=== PATIENT | female | born 1965 | race Caucasian/White ===

== ENCOUNTER 2020-07-09 11:06 | Day surgery (SDC) | payer BC ==
[2020-07-05 13:04] LABS: BASOPHILS # (AUTO) 0.1 X10'3 (0-0.2); BASOPHILS % (AUTO) 0.8 % (0-1); EOSINOPHILS # (AUTO) 0.2 X10'3 (0-0.9); EOSINOPHILS % (AUTO) 2.2 % (0-6); HEMATOCRIT 41.8 % (35.0-45.0); LYMPHOCYTES # (AUTO) 2.1 X10'3 (1.1-4.8); LYMPHOCYTES % (AUTO) 23.7 % (21-51); MEAN CORPUSCULAR HEMOGLOBIN 27.4 PG (27.0-31.0); MEAN CORPUSCULAR HGB CONC 33.4 g/dL (33.0-36.5); MEAN CORPUSCULAR VOLUME 82.1 FL (78-98); MEAN PLATELET VOLUME 9.8 FL (7.4-10.4); MONOCYTES # (AUTO) 0.4 X10'3 (0-0.9); NEUTROPHILS % (AUTO) 68.3 % (42-75); PLATELET COUNT 216 X10'3 (140-440); RED CELL DISTRIBUTION WIDTH 14.4 % (11.5-14.5); WHITE BLOOD COUNT 8.8 X10'3 (4.5-11.0)
[2020-07-05 13:16] LABS: ALBUMIN 3.8 G/DL (3.4-5.0); ANION GAP 10 (8-16); BLOOD UREA NITROGEN 13 MG/DL (7-18); BUN/CREATININE RATIO 15.1 (6.6-38.0); CALCIUM 9.5 MG/DL (8.5-10.1); CHLORIDE 102 MMOL/L (99-107); CREATININE 0.86 MG/DL (0.40-0.90); GLUCOSE 106 MG/DL (70-104); PARTIAL THROMBOPLASTIN TIME 28 SECONDS (22-32); POTASSIUM 3.9 MMOL/L (3.5-5.1); SODIUM 140 MMOL/L (135-145); TOTAL CARBON DIOXIDE 28.5 MMOL/L (24-32); eGFR 68 ML/MIN
[~2020-07-09] VITALS: Ht 170.2 cm; Wt 123.4 kg
[2020-07-09] VITALS (8 sets, daily range): BP systolic 91–145; BP diastolic 45–73
[2020-07-09] MEDS ORDERED: diphenhydrAMINE 25mg capsule PO PRN (11:30)
[2020-07-09] MEDS ORDERED: LORazepam 0.5 MG tablet PO PRN (11:30)
[2020-07-09] MEDS ORDERED: LIDOcaine/PRILOcaine 5gm cream TP ONE (11:30)
[2020-07-09] MEDS ORDERED: normal saline 1,000 ML IV SCH (11:30)
[2020-07-09] MEDS ORDERED: HYDR25TA5 PO (11:36)
[2020-07-09] MEDS ORDERED: NITR0.4T48 SL (11:36)
[2020-07-09] MEDS ORDERED: ASPI-1053 PO (11:36)
[2020-07-09] MEDS ORDERED: NAPR250T4 PO (11:36)
[2020-07-09] MEDS ORDERED: CITA20TA28 PO (11:36)
[2020-07-09] MEDS ORDERED: VITAMIN D3 PO (11:36)
[2020-07-09] MEDS ORDERED: MULT-1180 (11:36)
[2020-07-09] MEDS ORDERED: CLON0.1T2 PEG (11:36)
[2020-07-09] MEDS ORDERED: ATOR10TA87 PO (11:36)
[2020-07-09] MEDS ORDERED: LISI30TA4 PO (11:36)
[2020-07-09] MEDS ORDERED: ALLO100T PO (11:36)
[2020-07-09] MEDS ORDERED: nitroGLYCERIN-Tridil 50MG/D5W 250 ML IV ONE (11:48)
[2020-07-09] MEDS ORDERED: LIDOcaine 1% (10mg/ml)w/preservative injection 20ml MDV ONE (11:48)
[2020-07-09] MEDS ORDERED: midazolam 2 mg/2 ml injection ONE ×2 (11:48→12:27)
[2020-07-09] MEDS ORDERED: fentaNYL/PF 50MCG/1 ML 2ML syringe ONE (11:48)
[2020-07-09] MEDS ORDERED: verapamil 2.5 mg/ml inj IV ONE (11:48)
[2020-07-09] MEDS ORDERED: heparin 1,000unit/ml 10ml vial 10 ML ONE (11:49)
[2020-07-09] MEDS ORDERED: iohexol 350MG/ML 100ml bottle IV ONE (11:49)
--- NOTE | 2020-07-09 11:57 | NUR ---
Pt left floor for procedure.
[2020-07-09] MEDS ORDERED: ondansetron/PF 4mg/2ml inj IV PRN (13:10)
[2020-07-09] MEDS ORDERED: proCHLORperazine 10 MG/2 ml inj IV PRN (13:10)
[2020-07-09] MEDS ORDERED: OXAZEpam 15mg capsule PO PRN (13:10)
== END 2020-07-09 15:30 | disposition home or self-care (01) ==
LOC: SSTAY O 11:06
PROVIDERS: ATTEND Internal Medicine Interventional Cardiology
DX: R07.9 Chest pain, unspecified (principal); I25.10 Atherosclerotic heart disease of native coronary artery without angina pectoris; J44.9 Chronic obstructive pulmonary disease, unspecified; G47.33 Obstructive sleep apnea (adult) (pediatric); I10 Essential (primary) hypertension; Z79.82 Long term (current) use of aspirin; F32.9 Major depressive disorder, single episode, unspecified; Z79.899 Other long term (current) drug therapy; Z88.1 Allergy status to other antibiotic agents; Z88.8 Allergy status to other drugs, medicaments and biological substances; Z98.890 Other specified postprocedural states
CPT/HCPCS: 36415; 80048; 85025; 85610; 85730; 93005; 93458; 99152; 99153; C1769; J1644; J2001; J2250; J3010; Q9967; A4620; A5120; J3490

== ENCOUNTER 2021-03-15 18:43 | Emergency (ER) | payer BC, MEDICAID ==
[~2021-03-15] VITALS: Ht 170.2 cm; Wt 125.0 kg
[~2021-03-15 18:43] MED LIST: ALLO100T PO; ASPI-1053 PO; ATOR10TA87 PO; CITA20TA28 PO; CLON0.1T2 PEG; HYDR25TA5 PO; LISI30TA4 PO; MULT-1180; NAPR-1170 PO; NITR0.4T48 SL; VITAMIN D3 PO
[2021-03-15 19:20] VITALS: BP 134/52
[2021-03-15] MEDS ORDERED: acetaminophen 325mg tablet PO ONE (19:25)
[2021-03-15] MEDS ORDERED: ketorolac tromethamine 15mg/ml inj. IV ONE (19:25)
[2021-03-15] MEDS ORDERED: VALA100031 PO (19:37)
[2021-03-15] MEDS ORDERED: ACYC-129 PO (20:25)
[2021-03-15] MEDS ORDERED: HYDROcodone/acetaminophen 5mg/325mg tablet PO ONE (20:30)
== END 2021-03-15 21:00 | disposition home or self-care (01) ==
LOC: ER 18:43
DX: J44.9 Chronic obstructive pulmonary disease, unspecified (principal); Z88.0 Allergy status to penicillin; Z88.1 Allergy status to other antibiotic agents; Z79.899 Other long term (current) drug therapy; Z20.822 Contact with and (suspected) exposure to COVID-19
CPT/HCPCS: 71045; 87635; 96372; 99284; C9803; J1885

== ENCOUNTER 2024-11-06 07:23 | Emergency (ER) | payer MEDICARE, OTHER ==
[~2024-11-06] VITALS: Ht 170.2 cm; Wt 94.6 kg
[~2024-11-06 07:23] MED LIST changes: +CITA-178 PO; -CITA20TA28 PO
[2024-11-06 07:26] VITALS: BP 190/103; PULSE 102; O2SAT 98
--- NOTE | 2024-11-06 09:37 | Physician Documentation ---
History of Present Illness ~ Chief Complaint: Back Pain Stated Complaint: leg pain Time Seen by MD: 08:38 HPI 59 f sHe has presents with a complaint of right-sided sciatica exacerbation. Denies any acute injury. States she has a history of back problems. States that the most of her pain starts in her right buttocks and radiates down her right leg. Denies any numbness tingling incontinence fever Medication Reconciliation Allergies: Coded Allergies: Penicillins (Verified Allergy, Unknown, 11/06/24) azithromycin (Verified Allergy, Unknown, 11/06/24) cephalexin (Verified Allergy, Unknown, 11/06/24) Scheduled Allopurinol* (Allopurinol*), 1 TAB PO DAILY, (Reported) Aspirin (Delio Chewable), 81 MG PO DAILY, (Reported) Atorvastatin Calcium* (Lipitor*), 1 TABLET PO DAILY, (Reported) Citalopram Hydrobromide* (Celexa*), 1 TAB PO DAILY, (Reported) Clonidine HCl (Clonidine HCl), 0.5 TAB PEG TID, (Reported) Hydrochlorothiazide (Hydrochlorothiazide), 1 TAB PO DAILY, (Reported) Lisinopril (Lisinopril), 1 TAB PO DAILY, (Reported) Nitroglycerin (Nitroglycerin), 1 TAB SL UD, (Reported) [Vitamin D3], 125 MCG PO DAILY, (Reported) Scheduled PRN Naproxen (Naproxen), 1 TAB PO PRN PRN for pain, (Reported) Miscellaneous Medications Multivitamin/Iron/Folic Acid (Centrum Adults Tablet), (Reported) Past Medical History Past Medical History: COPD Review of Systems All Other Systems at this time: Reviewed and Negative ROS As stated above in the HPI, otherwise all systems are reviewed and negative. Physical Exam Physical Exam Vital Signs: Temperature: 97.9, Heart Rate: 102, Respiratory Rate: 18, BP: 190/103, Pulse Oximetry: 98, Weight: 94.600 Physical Exam General: Alert, no apparent distress. s. Extremities: Normal range of motion, no deformity. Patient's the right buttocks via palpation Neurologic: Oriented x4. normal Reflexes Psychiatric: Normal mood and affect. Skin: Normal color, warm and dry. No edema, no ecchymosis. Progress Results/Orders Results/Orders Completed Orders - PERRY CERDA NP Ketorolac Trometh 15mg/Ml Vial (Toradol (11/06/24 08:45) Morphine 4mg/Ml Inj. (Morphine Inj.) (11/06/24 09:35) Vital Signs 11/06/24 07:26 Temp 97.9 Pulse 102 Resp 18 B/P (MAP) 190/103 Pulse Ox 98 Medical Decision Making Findings Patient does not present with any red flag signs her indications that would require further imaging. If for pain and inflammation and advised her to follow up with primary care to obtain a physical therapy referral Differential Dx:Considerations: Include: AAA, Aortic dissection, , Ap pendicitis, Bowel obstruction, Cholelithiasis, Cholangitis, DJD, Ectopic , Fracture, Hepatitis, HNP, Musculoskeletal pain, Pancreatitis, Pyelonephritis, Strain, Urinary obstruction, Urolithiasis, Ovarian torsion, Other Departure Disposition: 01 HOME / SELF CARE / HOMELESS Impression: Primary Impression: Lumbosacral strain Additional Impression: Back problem Condition: Stable Discharge Instructions: Chronic Back Pain, Lumbosacral Strain Referrals: NO PRIMARY CARE PROVIDER (PCP) Prescriptions Cyclobenzaprine HCl (Cyclobenzaprine HCl) 10 Mg Tablet 1 TAB PO Q8H for muscle spasms for 10 Days, #30 TAB Prov: PERRY CERDA NP 11/06/24 Signature Scribe Signature: f Attestation: The note accurately reflects work and decisions made by me.Perry Shahid NP 11/06/24 09:36 PERRY CERDA NP Nov 06, 2024 09:37
[2024-11-06 09:44] VITALS: RESP 16
[2024-11-06] MEDS ORDERED: CYCL-394 PO (09:44)
[2024-11-06] MEDS: ketorolac trometh 15mg/ml vial 15 MG/ML ML IM ONE (09:44)
[2024-11-06] MEDS: morphine 4 MG/ML inj SYRINge IM ONE (09:44)
[2024-11-06 09:50] VITALS: TEMP 97.9
== END 2024-11-06 09:53 | disposition home or self-care (01) ==
LOC: ER 07:25
DX: S39.012A Strain of muscle, fascia and tendon of lower back, initial encounter (principal); J44.9 Chronic obstructive pulmonary disease, unspecified; Z88.0 Allergy status to penicillin; Z88.1 Allergy status to other antibiotic agents; Z88.8 Allergy status to other drugs, medicaments and biological substances
CPT/HCPCS: 96372; 99284; J1885; J2270